=== PATIENT | female | born 1980 | race Hispanic/Latino ===

== ENCOUNTER 2017-04-11 19:55 | Emergency (ER) | payer SELFPAY ==
[2017-04-11] MEDS ORDERED: TETANUS/DIPHTHERIA TOXOID [ADULT] 0.5 ML VIAL IM ONE (20:13)
== END 2017-04-11 20:40 | disposition home or self-care (01) ==
LOC: EDH 19:55
DX: S80.872A Other superficial bite, left lower leg, initial encounter (principal); W54.0XXA Bitten by dog, initial encounter; Y93.89 Activity, other specified; Y92.009 Unspecified place in unspecified non-institutional (private) residence as the place of occurrence of the external cause; Y99.8 Other external cause status
CPT/HCPCS: 90471; 90714

== ENCOUNTER 2017-12-15 17:00 | Emergency (ER) | payer OTHER ==
[2017-12-15] MEDS ORDERED: OCTYL 2-CYANOACRYLATE 1 EACH TP ONE (17:21)
== END 2017-12-15 17:35 | disposition home or self-care (01) ==
LOC: EDH 17:00
DX: S61.412A Laceration without foreign body of left hand, initial encounter (principal); Z87.891 Personal history of nicotine dependence; W26.0XXA Contact with knife, initial encounter; Y93.89 Activity, other specified; Y92.89 Other specified places as the place of occurrence of the external cause; Y99.8 Other external cause status
CPT/HCPCS: 12041